=== PATIENT | female | born 1975 | race Caucasian/White ===

== ENCOUNTER 2020-05-01 08:44 | Outpatient (REF) | payer OTHER, SELFPAY | END 2020-05-01 08:45 | disposition home or self-care (01) | LOC: HO.HAP 08:44 | PROVIDERS: Visit Provider Internal Medicine | DX: Z46.1 Encounter for fitting and adjustment of hearing aid (principal) | CPT/HCPCS: 92700; V5241; V5257; V5264 ==

== ENCOUNTER 2020-05-10 15:36 | Outpatient (REF) | payer OTHER, SELFPAY | END 2020-05-10 15:37 | disposition home or self-care (01) | LOC: HO.HAP 15:36 | PROVIDERS: PCP Internal Medicine; Referring Provider Internal Medicine; Visit Provider Internal Medicine | DX: Z13.89 Encounter for screening for other disorder (principal) | CPT/HCPCS: 92700 ==

== ENCOUNTER 2020-05-17 10:08 | Outpatient (REF) | payer OTHER, SELFPAY | END 2020-05-17 10:09 | disposition home or self-care (01) | LOC: HO.MDS 10:08 | PROVIDERS: PCP Internal Medicine; Visit Provider Internal Medicine | DX: J45.909 Unspecified asthma, uncomplicated (principal) | CPT/HCPCS: 96372; J2357 ==

== ENCOUNTER → 2020-06-15 10:36 | Outpatient (BNVA) | payer OTHER, SELFPAY | PROVIDERS: PCP Internal Medicine; Visit Provider Internal Medicine | DX: J45.909 Unspecified asthma, uncomplicated (principal) | CPT/HCPCS: 99212 ==

== ENCOUNTER 2020-06-20 07:16 | Outpatient (REF) | payer OTHER, SELFPAY | END 2020-06-20 07:17 | disposition home or self-care (01) | LOC: HO.LAB 07:16 | PROVIDERS: PCP Internal Medicine; Visit Provider Internal Medicine | DX: Z20.828 Contact with and (suspected) exposure to other viral communicable diseases (principal) | CPT/HCPCS: C9803; U0003 ==

== ENCOUNTER 2020-07-14 13:40 | Outpatient (REF) | payer OTHER, SELFPAY | END 2020-07-14 13:41 | disposition home or self-care (01) | LOC: HO.MDS 13:40 | PROVIDERS: PCP Internal Medicine; Visit Provider Internal Medicine | DX: J45.50 Severe persistent asthma, uncomplicated (principal) | CPT/HCPCS: 96372; J2357 ==

== ENCOUNTER 2020-08-05 14:15 | Emergency (ER) | payer OTHER, SELFPAY ==
[2020-08-05 14:28] VITALS: BP 131/84; PULSE 81; RESP 18; TEMP 36.6; O2SAT 96; BMI 21.4
--- NOTE | 2020-08-05 15:02 | XR_ITS ---
EXAMINATION: XR CHEST CLINICAL INFORMATION: SOB COMPARISON: Chest x-ray 01/17/2020 TECHNIQUE: Frontal view of the chest was obtained. FINDINGS: The lungs are well-expanded and clear without acute pneumonic process. Prominent interstitial markings are seen in both lower lobes. The heart size and pulmonary vascularity is normal. No gross bony abnormality seen XR/XR chest 1V IMPRESSION: No acute cardiopulmonary process seen. No major change from 01/17/2020
--- NOTE | 2020-08-05 15:08 | ED.SOB ---
HPI - SOB/Dyspnea General Chief Complaint: Dyspnea Stated Complaint: diff breathing Time Seen by Provider: 08/05/20 14:43 Source: patient Mode of arrival: ambulatory Limitations: no limitations History of Present Illness HPI Narrative: Patient came from Urgent Care with history of COPD been having shortness of breath for last few days was saturating 90% at room air was given 60 mg of prednisone COVID test was done which was negative on arrival here patient was saturating 93% at room air and on 1.5 L 96% patient does have a nebulizer at home and uses inhaler also patient had similar episode in the past. Patient denied any fever or chills coughing a lot with mucopurulent phlegm no chest pain no leg swelling MD elicited complaint: shortness of breath and cough Pertinent past history: COPD Onset (ago): day(s) Timing: constant Severity: moderate Exacerbating factors: nothing Relieving factors: oxygen Known history of: COPD Associated symptoms: cough, wheezing and sputum production Related Data Home Medications Medication Instructions Recorded Confirmed buprenorphine 8 mg-naloxone 2 mg film SUBLINGUAL 04/10/20 sublingual film fluoxetine 20 mg capsule 20 mg PO DAILY 04/10/20 fluticasone propionate 50 INTRANASAL 04/10/20 mcg/actuation nasal spray,suspension loratadine 10 mg tablet 10 mg PO BEDTIME 04/10/20 montelukast 10 mg tablet 10 mg PO DAILY 04/10/20 omalizumab 150 mg/mL subcutaneous mg SUBCUT Q4W 04/10/20 syringe omeprazole 40 mg capsule,delayed 40 mg PO DAILY 04/10/20 release sennosides 8.6 mg tablet 17.2 mg PO DAILY 04/10/20 docusate sodium 100 mg capsule 100 mg PO DAILY 06/15/20 Previous Rx's Medication Instructions Recorded albuterol sulfate 90 mcg/actuation 2 puff INHALATION Q4-6H PRN #18 g 07/21/20 aerosol inhaler ipratropium 0.5 mg-albuterol 3 mg 3 ml INHALATION Q6H PRN #180 ml 07/21/20 (2.5 mg base)/3 mL nebulization soln doxycycline hyclate 100 mg PO BID #20 cap 08/05/20 prednisone 40 mg PO DAILY #10 tab 08/05/20 Allergies Allergy/AdvReac Type Severity Reaction Status Date / Time Penicillins [PENICILLINS] Allergy Intermediate HIVES Verified 06/15/20 10:44 acetaminophen [From VICODIN] AdvReac Intermediate NAUSEA & Verified 06/15/20 10:44 VOMITING Review of Systems Review of Systems: Constitutional : No Weight loss, No Fever, No Chills ENT/Mouth : No sore throat, No Rhinorrhea Eyes: No Eye Pain, No Swelling Cardiovascular : No Chest Pain, no palpitations Respiratory : ++Cough, ++ Sputum, ++shortness of breath Gastrointestinal : no Nausea, No Vomiting, No Diarrhea, No abdominal Pain, no black stools Genitourinary : No Dysuria, No Urinary Frequency Musculoskeletal : No joint pain, No Myalgias, No Joint Swelling Skin : No Skin Lesions, No rash Neuro : No Weakness, No Numbness, No Dizziness, No Headache Psych : No Anxiety/Panic, No Depression Heme/Lymph: No Bruising, No Lymphadenopathy Endocrine : No Polyuria, No Polydipsia All other systems reviewed and are negative [facility] Past Medical History Medical History (Updated 08/05/20 @ 16:22 by Low Silva MD) Allergic rhinitis Asthma COPD (chronic obstructive pulmonary disease) Social History Social History Alcohol intake: never Smoking Status: Never smoker Use of substances other than those prescribed or required for medical reasons: Yes Substance Use Type: Marijuana Substance Use Frequency: Daily Advance Directives: No Advance Directives Information Provided: No Physical Exam Vital Signs: Vital Signs: Last Vital Signs Temp 97.9 F 08/05/20 14:28 Pulse 78 08/05/20 15:49 Resp 18 08/05/20 14:28 BP 131/84 08/05/20 14:28 Pulse Ox 96 08/05/20 14:28 Body Mass Index 21.4 Appearance: Alert. Oriented X3. In moderate distress. Saturating 96% on 1.5 L coughing frequently Eyes: Pupils equal, round and reactive to light. ENT: Pharynx normal. Neck: Normal inspection. Neck supple. CVS: Normal heart rate and rhythm. Pulses normal. Respiratory: Moderate respiratory distress. Wheezing and rhonchi bilaterally diffuse , no rales Abdomen: Soft and nontender. Bowel sounds are present, no mass palpable, no CVA tenderness Skin: Skin warm and dry. Normal skin color. Normal skin turgor. Extremities: No lower extremity edema. No calf tenderness Neuro: Oriented X 3. No motor deficit. No sensory deficit. Course Course Course Narrative: Patient received continues nebulizing treatment feeling much better now chest x-ray negative for any acute infiltrate labs are stable will discharge patient home on prednisone and doxycycline advised to continue nebulizing treatment at home MDM - SOB/Dyspnea Differential Diagnosis Differential diagnosis: Likely acute exacerbation of chronic obstructive airways disease Medical Records Attestation: I reviewed the patient's medical records. Lab Data Attestation: I reviewed the patient's lab results. Result diagrams: 08/05/20 15:27 08/05/20 15:27 Labs: Lab Results 08/05/20 08/05/20 08/05/20 Range/Units 15:27 15:27 15:27 WBC 12.0 H (4.8-10.8) X10*3/uL RBC 4.52 (4.20-5.50) X10*6/uL Hgb 13.4 (12.0-16.0) g/dl Hct 40.2 (37-47) % MCV 88.9 (80-98) fL MCH 29.6 (27.0-33.0) pg MCHC 33.3 (31.0-35.0) g/dl RDW 12.2 (11.0-16.0) % Plt Count 209 (160-400) X10*3/uL MPV 10.2 (9.4-12.3) fL Immature Gran % (Auto) 0.3 (0.0-0.4) % Neut % (Auto) 78.4 H (45-73) % Lymph % (Auto) 14.6 L (20-40) % [place] % (Auto) 2.3 (2-11) % Eos % (Auto) 3.8 (0-4) % Baso % (Auto) 0.6 (0-2) % Lymph # (Auto) 1.7 (1.2-4.9) X10*3/uL [place] # (Auto) 0.3 (0.1-1.2) X10*3/uL Eos # (Auto) 0.5 H (0.0-0.4) X10*3/uL Baso # (Auto) 0.1 (0.0-0.2) X10*3/uL Abs Immat Gran (auto) 0.04 H (0.00-0.03) X10*3/uL Absolute Neuts (auto) 9.4 H (2.0-8.3) X10*3/uL Absolute Nucleated RBC 0.000 (0.0-0.012) X10*3/uL Nucleated RBC % (auto) 0.0 (0.0-0.2) /100WBC Sodium 136 (135-145) mmol/L Potassium 4.0 (3.3-5.1) mmol/l Chloride 101 (96-108) mmol/L Carbon Dioxide 28 (22-29) mmol/L Anion Gap 11 L (12-20) BUN 6 L (9-16) mg/dL Creatinine 0.74 (0.5-1.4) mg/dL Estim Creat Clear Calc 84.6 Estimated GFR > 60 Random Glucose 150 H (60-115) mg/dL Lactic Acid 1.4 (0.5-2.0) mmol/L Calcium 8.7 (8.4-10.2) mg/dL Total Bilirubin 0.5 (0.0-1.0) mg/dL Direct Bilirubin 0.2 (0.0-0.5) mg/dL AST 24 (5-31) U/L ALT 25 (0-31) U/L Alkaline Phosphatase 69 (39-117) U/L Total Protein 8.1 H (6.5-8.0) g/dL Albumin 3.9 (3.5-5.0) g/dL Discharge Plan Discharge Clinical Impression: Acute exacerbation of chronic obstructive airways disease Patient Disposition: Home, Self-Care Instructions: COPD (Chronic Obstructive Pulmonary Disease) (ED) Additional Instructions: Continue nebulizer at home every 4-6 hours as advised. Take prednisone as prescribed. Take doxycycline as prescribed. Follow with business support administrator/PCP if not better Prescriptions: New doxycycline hyclate 100 mg capsule 100 mg PO BID Qty: 20 RF: 0 prednisone 20 mg tablet 40 mg PO DAILY Qty: 10 RF: 0 No Action albuterol sulfate 90 mcg/actuation HFA aerosol inhaler 2 puff inhalation Q4-6H PRN (Reason: shortness of breath or wheezing) Qty: 18 RF: 2 ipratropium-albuterol 0.5 mg-3 mg(2.5 mg base)/3 mL solution for nebulization 3 ml inhalation Q6H PRN (Reason: shortness of breath or wheezing) Qty: 180 RF: 2 buprenorphine-naloxone 8-2 mg film sublingual RF: 0 fluticasone propionate 50 mcg/actuation spray,suspension intranasal RF: 0 fluoxetine 20 mg capsule 20 mg PO DAILY RF: 0 omeprazole 40 mg capsule,delayed release(DR/EC) 40 mg PO DAILY RF: 0 sennosides 8.6 mg tablet 17.2 mg PO DAILY RF: 0 Xolair 150 mg/mL syringe subcut Q4W RF: 0 loratadine 10 mg tablet 10 mg PO BEDTIME RF: 0 montelukast 10 mg tablet 10 mg PO DAILY RF: 0 docusate sodium [Colace] 100 mg capsule 100 mg PO DAILY RF: 0
[2020-08-05 15:33] LABS: MANUAL DIFF FLAG NO
[2020-08-05 15:34] LABS: Basophils Absolute Auto 0.1 X10*3/uL (0.0-0.2); Basophils Percent Auto 0.6 % (0-2); Eosinophils Absolute Auto 0.5 X10*3/uL (0.0-0.4); Eosinophils Percent Auto 3.8 % (0-4); Hematocrit 40.2 % (37-47); Hemoglobin 13.4 g/dl (12.0-16.0); Imm Gran Abs Auto 0.04 X10*3/uL (0.00-0.03); Imm Gran Pct Auto 0.3 % (0.0-0.4); Lymphocytes Absolute Auto 1.7 X10*3/uL (1.2-4.9); Lymphocytes Percent Auto 14.6 % (20-40); Mean Corpuscular HGB Conc 33.3 g/dl (31.0-35.0); Mean Corpuscular Hemoglobin 29.6 pg (27.0-33.0); Mean Corpuscular Volume 88.9 fL (80-98); Mean Platelet Volume 10.2 fL (9.4-12.3); Monocytes Absolute Auto 0.3 X10*3/uL (0.1-1.2); Monocytes Percent Auto 2.3 % (2-11); Neutrophils Absolute Auto 9.4 X10*3/uL (2.0-8.3); Neutrophils Percent Auto 78.4 % (45-73); Platelet Count 209 X10*3/uL (160-400); Red Blood Count 4.52 X10*6/uL (4.20-5.50); Red Cell Distribution Width 12.2 % (11.0-16.0)
[2020-08-05] MEDS: 0.9 % Sodium Chloride 1,000 ML 999 ML IVCONT (15:34)
[2020-08-05] MEDS: Albuterol Sulfate (0.083%) 2.5 MG/3 ML VIAL.NEB 5 MG INHALE ×2 (15:44→16:50)
[2020-08-05] MEDS: Albuterol/Iprat 2.5/0.5MG 3 ML AMPUL.NEB INHALE (15:44)
--- NOTE | 2020-08-05 15:45 | PC.NURSE ---
iv established, blood labs and cultures obtained and sent. medicated per emar. resp tx at bedside for treatment following negative covid swab.
[2020-08-05 15:49] VITALS: PULSE 78; O2SAT 98
[2020-08-05 15:54] LABS: Lactic Acid 1.4 mmol/L (0.5-2.0)
[2020-08-05 16:00] VITALS: O2SAT 93
[2020-08-05 16:01] LABS: Alanine Aminotransferase 25 U/L (0-31); Albumin Level 3.9 g/dL (3.5-5.0); Alkaline Phosphatase 69 U/L (39-117); Anion Gap 11 (12-20); Aspartate Amino Transferase 24 U/L (5-31); Bilirubin Direct 0.2 mg/dL (0.0-0.5); Bilirubin Total 0.5 mg/dL (0.0-1.0); Blood Urea Nitrogen 6 mg/dL (9-16); Calcium 8.7 mg/dL (8.4-10.2); Carbon Dioxide 28 mmol/L (22-29); Chloride 101 mmol/L (96-108); Creatinine Clr Calc Pharmacy 84.6; Estimated Glomerular Filt Rate > 60; Glucose Random 150 mg/dL (60-115); Sodium 136 mmol/L (135-145); Total Protein 8.1 g/dL (6.5-8.0)
[2020-08-05] MEDS: Magnesium Sulfate/H2O 2 GM/50 ML PIGGYBACK IV (16:51)
[2020-08-05] MEDS: dexAMETHasone sod phosphate 4 MG/ML VIAL IVPUSH (16:51)
[2020-08-05 16:54] VITALS: PULSE 87; O2SAT 99
== END 2020-08-05 18:01 | disposition home or self-care (01) ==
PROVIDERS: Internal Medicine; Emergency Provider Emergency Medicine Emergency Medical Services; PCP Internal Medicine
DX: J44.1 Chronic obstructive pulmonary disease with (acute) exacerbation (principal); R06.00 Dyspnea, unspecified; Z20.822 Contact with and (suspected) exposure to COVID-19
CPT/HCPCS: 36415; 71045; 80048; 80076; 83605; 85025; 87040; 94640; 94644; 96361; 96365; 96375; 99284; J1100; J3475

== ENCOUNTER → 2020-08-14 13:39 | Outpatient (BNVA) | payer OTHER, SELFPAY | PROVIDERS: PCP Internal Medicine; Visit Provider Internal Medicine | DX: J45.909 Unspecified asthma, uncomplicated (principal); J44.9 Chronic obstructive pulmonary disease, unspecified | CPT/HCPCS: 99212 ==

== ENCOUNTER → 2020-09-11 15:37 | Outpatient (BNVA) | payer OTHER, SELFPAY | PROVIDERS: PCP Internal Medicine; Visit Provider Internal Medicine ==

== ENCOUNTER 2020-09-13 11:02 | Outpatient (REF) | payer OTHER, SELFPAY | END 2020-09-13 11:03 | disposition home or self-care (01) | LOC: HO.MDS 11:02 | PROVIDERS: PCP Internal Medicine; Visit Provider Internal Medicine | DX: J45.50 Severe persistent asthma, uncomplicated (principal) | CPT/HCPCS: 96372; J2357 ==

== ENCOUNTER → 2020-09-26 15:50 | Outpatient (BNVA) | payer OTHER, SELFPAY | PROVIDERS: PCP Internal Medicine; Visit Provider Internal Medicine ==

== ENCOUNTER 2020-09-27 14:14 | Emergency (ER) | payer MEDICAID, SELFPAY ==
--- NOTE | ~2020-09-27 | XR_ITS ---
EXAMINATION: XR CHEST CLINICAL INFORMATION: SOB. COMPARISON: None TECHNIQUE: Frontal view of the chest was obtained. FINDINGS: No significant abnormality is noted involving the heart, lungs, mediastinum, bony thorax or soft tissues. XR/XR chest 1V IMPRESSION: Unremarkable chest examination.
[2020-09-27 14:21] VITALS: BP 126/90; PULSE 84; RESP 22; TEMP 36.7; O2SAT 93; BMI 21.2
[2020-09-27 14:30] VITALS: PULSE 74
--- NOTE | 2020-09-27 14:37 | ED.SOB ---
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 using nebulizer treatment every 4 hours at home without significant relief comes here for increased shortness of breath and wheezing saturating 93% at room air patient has not been vaccinated with COVID Related Data Home Medications Medication Instructions Recorded Confirmed buprenorphine 8 mg-naloxone 2 mg film SUBLINGUAL 04/10/20 09/26/20 sublingual film fluoxetine 20 mg capsule 20 mg PO DAILY 04/10/20 09/26/20 fluticasone propionate 50 INTRANASAL 04/10/20 09/26/20 mcg/actuation nasal spray,suspension loratadine 10 mg tablet 10 mg PO BEDTIME 04/10/20 09/26/20 montelukast 10 mg tablet 10 mg PO DAILY 04/10/20 09/26/20 omalizumab 150 mg/mL subcutaneous mg SUBCUT Q4W 04/10/20 09/26/20 syringe omeprazole 40 mg capsule,delayed 40 mg PO DAILY 04/10/20 09/26/20 release sennosides 8.6 mg tablet 17.2 mg PO DAILY 04/10/20 09/26/20 docusate sodium 100 mg capsule 100 mg PO DAILY 06/15/20 09/26/20 Previous Rx's Medication Instructions Recorded albuterol sulfate 90 mcg/actuation 2 puff INHALATION Q4-6H PRN #18 g 08/31/20 aerosol inhaler ipratropium 0.5 mg-albuterol 3 mg 3 ml INHALATION Q6H PRN #180 ml 09/25/20 (2.5 mg base)/3 mL nebulization soln doxycycline hyclate 100 mg tablet 100 mg PO BID 10 Days #20 tab 09/26/20 prednisone 5 mg tablet 5 mg PO BID 10 Days #21 tab 09/26/20 benzonatate [Tessalon Perles] 100 mg PO Q6H PRN #20 cap 09/27/20 cefpodoxime 200 mg PO BID #20 tab 09/27/20 doxycycline hyclate 100 mg PO BID #14 tab 09/27/20 Allergies Allergy/AdvReac Type Severity Reaction Status Date / Time Penicillins [PENICILLINS] Allergy Intermediate HIVES Verified 09/26/20 15:52 acetaminophen [From VICODIN] AdvReac Intermediate NAUSEA & Verified 09/26/20 15:52 VOMITING Review of Systems Review of Systems: Constitutional : No Weight loss, No Fever, No Chills ENT/Mouth : No sore throat, No Rhinorrhea Eyes: No Eye Pain, No Swelling Cardiovascular : No Chest Pain, no palpitations Respiratory : ++ Cough, ++Sputum, ++ shortness of breath Gastrointestinal : no Nausea, No Vomiting, No Diarrhea, No abdominal Pain, no black stools Genitourinary : No Dysuria, No Urinary Frequency Musculoskeletal : No joint pain, No Myalgias, No Joint Swelling Skin : No Skin Lesions, No rash Neuro : No Weakness, No Numbness, No Dizziness, No Headache Psych : No Anxiety/Panic, No Depression Heme/Lymph: No Bruising, No Lymphadenopathy Endocrine : No Polyuria, No Polydipsia All other systems reviewed and are negative [facility] Past Medical History Medical History Allergic rhinitis Asthma COPD (chronic obstructive pulmonary disease) COPD (chronic obstructive pulmonary disease) Exacerbation of asthma Social History Social History Alcohol intake: never Smoking Status: Former smoker Use of substances other than those prescribed or required for medical reasons: No Substance Use Type: Marijuana Advance Directives: Yes Advance Directives Information Provided: Yes Advance Directives on File: No Physical Exam Vital Signs: Vital Signs: Last Vital Signs Temp 98.0 F 09/27/20 14:21 Pulse 67 09/27/20 16:08 Resp 12 09/27/20 16:08 BP 136/85 09/27/20 16:08 Pulse Ox 100 09/27/20 16:08 Body Mass Index 21.2 MDM - SOB/Dyspnea MDM Narrative Medical decision making narrative: Patient with COPD with increased cough and expectoration chest x-rays negative for any pneumonia saturating 93 - 94% at room air patient COVID-19 is negative patient already on prednisone will increase the dose to 40 mg daily already taking doxycycline will add Cifpodoxime. Patient has slightly elevated lactic acid of 2.6 which is from nebulizing treatment which she been doing it at home and prior to arrival patient is not clinically septic Differential Diagnosis Differential diagnosis: Likely acute exacerbation of chronic obstructive airways disease and pneumonia Lab Data Result diagrams: 09/27/20 14:47 09/27/20 14:47 Labs: Lab Results 09/27/20 09/27/20 09/27/20 Range/Units 14:47 14:47 14:47 WBC 10.7 (4.8-10.8) X10*3/uL RBC 4.36 (4.20-5.50) X10*6/uL Hgb 12.9 (12.0-16.0) g/dl Hct 39.6 (37-47) % MCV 90.8 (80-98) fL MCH 29.6 (27.0-33.0) pg MCHC 32.6 (31.0-35.0) g/dl RDW 12.7 (11.0-16.0) % Plt Count 195 (160-400) X10*3/uL MPV 10.4 (9.4-12.3) fL Immature Gran % (Auto) 0.2 (0.0-0.4) % Neut % (Auto) 63.7 (45-73) % Lymph % (Auto) 27.5 (20-40) % [place] % (Auto) 7.2 (2-11) % Eos % (Auto) 1.1 (0-4) % Baso % (Auto) 0.3 (0-2) % Lymph # (Auto) 3.0 (1.2-4.9) X10*3/uL [place] # (Auto) 0.8 (0.1-1.2) X10*3/uL Eos # (Auto) 0.1 (0.0-0.4) X10*3/uL Baso # (Auto) 0.0 (0.0-0.2) X10*3/uL Abs Immat Gran (auto) 0.02 (0.00-0.03) X10*3/uL Absolute Neuts (auto) 6.8 (2.0-8.3) X10*3/uL Absolute Nucleated RBC 0.000 (0.0-0.012) X10*3/uL Nucleated RBC % (auto) 0.0 (0.0-0.2) /100WBC Sodium 139 (135-145) mmol/L Potassium 3.8 (3.3-5.1) mmol/L Chloride 98 (96-108) mmol/L Carbon Dioxide 35 H (22-29) mmol/L Anion Gap 10 L (12-20) BUN 8 L (9-16) mg/dL Creatinine 0.81 (0.5-1.4) mg/dL Estim Creat Clear Calc 77.3 Estimated GFR > 60 Random Glucose 75 D (60-115) mg/dL Lactic Acid 2.6 H* (0.5-2.0) mmol/L Calcium 9.1 (8.4-10.2) mg/dL Total Bilirubin 0.6 (0.0-1.0) mg/dL Direct Bilirubin 0.2 (0.0-0.5) mg/dL AST 21 (5-31) U/L ALT 19 (0-31) U/L Alkaline Phosphatase 68 (39-117) U/L Total Protein 8.4 H (6.5-8.0) g/dL Albumin 4.1 (3.5-5.0) g/dL COVID-19 ([facility]) (Negative) COVID-19 Clin Com 09/27/20 Range/Units 14:47 WBC (4.8-10.8) X10*3/uL RBC (4.20-5.50) X10*6/uL Hgb (12.0-16.0) g/dl Hct (37-47) % MCV (80-98) fL MCH (27.0-33.0) pg MCHC (31.0-35.0) g/dl RDW (11.0-16.0) % Plt Count (160-400) X10*3/uL MPV (9.4-12.3) fL Immature Gran % (Auto) (0.0-0.4) % Neut % (Auto) (45-73) % Lymph % (Auto) (20-40) % [place] % (Auto) (2-11) % Eos % (Auto) (0-4) % Baso % (Auto) (0-2) % Lymph # (Auto) (1.2-4.9) X10*3/uL [place] # (Auto) (0.1-1.2) X10*3/uL Eos # (Auto) (0.0-0.4) X10*3/uL Baso # (Auto) (0.0-0.2) X10*3/uL Abs Immat Gran (auto) (0.00-0.03) X10*3/uL Absolute Neuts (auto) (2.0-8.3) X10*3/uL Absolute Nucleated RBC (0.0-0.012) X10*3/uL Nucleated RBC % (auto) (0.0-0.2) /100WBC Sodium (135-145) mmol/L Potassium (3.3-5.1) mmol/L Chloride (96-108) mmol/L Carbon Dioxide (22-29) mmol/L Anion Gap (12-20) BUN (9-16) mg/dL Creatinine (0.5-1.4) mg/dL Estim Creat Clear Calc Estimated GFR Random Glucose (60-115) mg/dL Lactic Acid (0.5-2.0) mmol/L Calcium (8.4-10.2) mg/dL Total Bilirubin (0.0-1.0) mg/dL Direct Bilirubin (0.0-0.5) mg/dL AST (5-31) U/L ALT (0-31) U/L Alkaline Phosphatase (39-117) U/L Total Protein (6.5-8.0) g/dL Albumin (3.5-5.0) g/dL COVID-19 ([facility]) Negative (Negative) COVID-19 Clin Com See Note Discharge Plan Discharge Clinical Impression: Bronchitis Patient Disposition: Home, Self-Care Instructions: Acute Bronchitis (ED) Additional Instructions: Take antibiotics as advised increase the dose of prednisone as prescribed continue doxycycline and follow with PCP/ library circulation department chief Prescriptions: New cefpodoxime 200 mg tablet 200 mg PO BID Qty: 20 RF: 0 doxycycline hyclate 100 mg tablet 100 mg PO BID Qty: 14 RF: 0 benzonatate [Tessalon Perles] 100 mg capsule 100 mg PO Q6H PRN (Reason: cough) Qty: 20 RF: 0 No Action albuterol sulfate 90 mcg/actuation HFA aerosol inhaler 2 puff inhalation Q4-6H PRN (Reason: shortness of breath or wheezing) Qty: 18 RF: 2 ipratropium-albuterol 0.5 mg-3 mg(2.5 mg base)/3 mL solution for nebulization 3 ml inhalation Q6H PRN (Reason: shortness of breath or wheezing) Qty: 180 RF: 2 buprenorphine-naloxone 8-2 mg film sublingual RF: 0 fluticasone propionate 50 mcg/actuation spray,suspension intranasal RF: 0 fluoxetine 20 mg capsule 20 mg PO DAILY RF: 0 omeprazole 40 mg capsule,delayed release(DR/EC) 40 mg PO DAILY RF: 0 sennosides 8.6 mg tablet 17.2 mg PO DAILY RF: 0 Xolair 150 mg/mL syringe subcut Q4W RF: 0 loratadine 10 mg tablet 10 mg PO BEDTIME RF: 0 montelukast 10 mg tablet 10 mg PO DAILY RF: 0 docusate sodium [Colace] 100 mg capsule 100 mg PO DAILY RF: 0 prednisone 5 mg tablet 5 mg PO BID 10 Days Qty: 21 RF: 0 doxycycline hyclate 100 mg tablet 100 mg PO BID 10 Days Qty: 20 RF: 0
[2020-09-27 14:45] VITALS: O2SAT 93
--- NOTE | 2020-09-27 14:45 | PC.NURSE ---
lungs - exp wheezing all lobes, very congested cough. prod cough (yellow/greenish) sputum
[2020-09-27] MEDS: methylPREDNISolone Sod Succ 125 MG/2 ML VIAL IVPUSH (15:01)
[2020-09-27] MEDS: 0.9 % Sodium Chloride 1,000 ML 999 ML IVCONT (15:01)
[2020-09-27 15:05] LABS: MANUAL DIFF FLAG NO
[2020-09-27 15:09] LABS: Basophils Percent Auto 0.3 % (0-2); Eosinophils Absolute Auto 0.1 X10*3/uL (0.0-0.4); Eosinophils Percent Auto 1.1 % (0-4); Hematocrit 39.6 % (37-47); Hemoglobin 12.9 g/dl (12.0-16.0); Imm Gran Abs Auto 0.02 X10*3/uL (0.00-0.03); Imm Gran Pct Auto 0.2 % (0.0-0.4); Lymphocytes Percent Auto 27.5 % (20-40); Mean Corpuscular HGB Conc 32.6 g/dl (31.0-35.0); Mean Corpuscular Hemoglobin 29.6 pg (27.0-33.0); Mean Corpuscular Volume 90.8 fL (80-98); Mean Platelet Volume 10.4 fL (9.4-12.3); Monocytes Absolute Auto 0.8 X10*3/uL (0.1-1.2); Monocytes Percent Auto 7.2 % (2-11); Neutrophils Absolute Auto 6.8 X10*3/uL (2.0-8.3); Neutrophils Percent Auto 63.7 % (45-73); Platelet Count 195 X10*3/uL (160-400); Red Blood Count 4.36 X10*6/uL (4.20-5.50); Red Cell Distribution Width 12.7 % (11.0-16.0); White Blood Count 10.7 X10*3/uL (4.8-10.8)
[2020-09-27 15:13] LABS: COVID-19 Test Negative (Negative)
[2020-09-27 15:23] LABS: Lactic Acid 2.6 mmol/L (0.5-2.0)
[2020-09-27 15:36] LABS: Alanine Aminotransferase 19 U/L (0-31); Albumin Level 4.1 g/dL (3.5-5.0); Alkaline Phosphatase 68 U/L (39-117); Anion Gap 10 (12-20); Aspartate Amino Transferase 21 U/L (5-31); Bilirubin Direct 0.2 mg/dL (0.0-0.5); Bilirubin Total 0.6 mg/dL (0.0-1.0); Blood Urea Nitrogen 8 mg/dL (9-16); Calcium 9.1 mg/dL (8.4-10.2); Carbon Dioxide 35 mmol/L (22-29); Chloride 98 mmol/L (96-108); Creatinine Clr Calc Pharmacy 77.3; Estimated Glomerular Filt Rate > 60; Glucose Random 75 mg/dL (60-115); Potassium 3.8 mmol/L (3.3-5.1); Sodium 139 mmol/L (135-145); Total Protein 8.4 g/dL (6.5-8.0)
[2020-09-27 16:08] VITALS: BP 136/85; PULSE 67; RESP 12; O2SAT 100
[2020-09-27] MEDS: cefTRIAXone sodium 1 GM in 0.9 % Sodium Chloride 50 ML IV (16:24)
[2020-09-27] MEDS: Albuterol/Iprat 2.5/0.5MG 3 ML AMPUL.NEB INHALE (16:39)
[2020-09-27] MEDS: Albuterol Sulfate (0.083%) 2.5 MG/3 ML VIAL.NEB 5 MG INHALE (16:40)
[2020-09-27] MEDS: Albuterol Sulfate (0.083%) 2.5 MG/3 ML VIAL.NEB INHALE (16:40)
[2020-09-27 16:44] VITALS: PULSE 66; O2SAT 92
[2020-09-27 16:55] LABS: Reflex Lactate? Lactic Acid Added
[2020-09-27 17:29] VITALS: BP 111/73; PULSE 81; RESP 18; TEMP 36.4; O2SAT 92
== END 2020-09-27 17:48 | disposition home or self-care (01) ==
PROVIDERS: Emergency Provider Internal Medicine; PCP Internal Medicine
DX: J20.9 Acute bronchitis, unspecified (principal); Z20.822 Contact with and (suspected) exposure to COVID-19; J44.9 Chronic obstructive pulmonary disease, unspecified; Z87.891 Personal history of nicotine dependence
CPT/HCPCS: 36415; 71045; 80048; 80076; 83605; 85025; 87040; 87635; 94640; 94644; 96361; 96365; 96374; 99285; J0696; J2930

== ENCOUNTER 2020-10-05 17:16 | Emergency (ER) | payer OTHER, SELFPAY ==
--- NOTE | ~2020-10-05 | XR_ITS ---
EXAMINATION: XR CHEST CLINICAL INFORMATION: Shortness of breath COMPARISON: Chest x-ray 09/27/2020 TECHNIQUE: Frontal portable view of the chest was obtained. 5:34 PM FINDINGS: No significant abnormality is noted involving the heart, lungs, mediastinum, bony thorax or soft tissues. XR/XR chest 1V IMPRESSION: Unremarkable examination.
--- NOTE | 2020-10-05 17:28 | ED.SOB ---
HPI - SOB/Dyspnea General Chief Complaint: Dyspnea Stated Complaint: sob Time Seen by Provider: 10/05/20 17:22 Source: patient Mode of arrival: EMS Limitations: no limitations History of Present Illness HPI Narrative: Patient history of asthma/COPD with frequent shortness of breath attacks was seen here on 09/27 chest x-ray was negative patient started on doxycycline and cefpodoxime and asked to continue prednisone 40 mg daily which she did not take. Comes here for increased shortness of breath for last 2 days got worse today prior to going to work she took a breathing treatment earlier. No fever no chills comes complaining of increased cough with mucopurulent phlegm EMT they gave her 125 mg of Solu-Medrol and DuoNeb treatment EN route Pertinent past history: COPD and asthma Onset (ago): day(s) (2) Related Data Home Medications Medication Instructions Recorded Confirmed buprenorphine 8 mg-naloxone 2 mg film SUBLINGUAL 04/10/20 09/26/20 sublingual film fluoxetine 20 mg capsule 20 mg PO DAILY 04/10/20 09/26/20 fluticasone propionate 50 INTRANASAL 04/10/20 09/26/20 mcg/actuation nasal spray,suspension loratadine 10 mg tablet 10 mg PO BEDTIME 04/10/20 09/26/20 montelukast 10 mg tablet 10 mg PO DAILY 04/10/20 09/26/20 omalizumab 150 mg/mL subcutaneous mg SUBCUT Q4W 04/10/20 09/26/20 syringe omeprazole 40 mg capsule,delayed 40 mg PO DAILY 04/10/20 09/26/20 release sennosides 8.6 mg tablet 17.2 mg PO DAILY 04/10/20 09/26/20 docusate sodium 100 mg capsule 100 mg PO DAILY 06/15/20 09/26/20 Previous Rx's Medication Instructions Recorded albuterol sulfate 90 mcg/actuation 2 puff INHALATION Q4-6H PRN #18 g 08/31/20 aerosol inhaler ipratropium 0.5 mg-albuterol 3 mg 3 ml INHALATION Q6H PRN #180 ml 09/25/20 (2.5 mg base)/3 mL nebulization soln doxycycline hyclate 100 mg tablet 100 mg PO BID 10 Days #20 tab 09/26/20 prednisone 5 mg tablet 5 mg PO BID 10 Days #21 tab 09/26/20 benzonatate [Tessalon Perles] 100 mg PO Q6H PRN #20 cap 09/27/20 cefpodoxime 200 mg PO BID #20 tab 09/27/20 doxycycline hyclate 100 mg PO BID #14 tab 09/27/20 prednisone 40 mg PO DAILY #10 tab 10/05/20 Allergies Allergy/AdvReac Type Severity Reaction Status Date / Time Penicillins [PENICILLINS] Allergy Intermediate HIVES Verified 09/26/20 15:52 acetaminophen [From VICODIN] AdvReac Intermediate NAUSEA & Verified 09/26/20 15:52 VOMITING Review of Systems Review of Systems: Constitutional : No Weight loss, No Fever, No Chills ENT/Mouth : No sore throat, No Rhinorrhea Eyes: No Eye Pain, No Swelling Cardiovascular : No Chest Pain, no palpitations Respiratory : ++Cough, +Sputum, +shortness of breath Gastrointestinal : no Nausea, No Vomiting, No Diarrhea, No abdominal Pain, no black stools Genitourinary : No Dysuria, No Urinary Frequency Musculoskeletal : No joint pain, No Myalgias, No Joint Swelling Skin : No Skin Lesions, No rash Neuro : No Weakness, No Numbness, No Dizziness, No Headache Psych : No Anxiety/Panic, No Depression Heme/Lymph: No Bruising, No Lymphadenopathy Endocrine : No Polyuria, No Polydipsia All other systems reviewed and are negative [facility] Past Medical History Medical History Allergic rhinitis Asthma COPD (chronic obstructive pulmonary disease) COPD (chronic obstructive pulmonary disease) Exacerbation of asthma Social History Social History Alcohol intake: never Smoking Status: Former smoker Substance Use Type: Marijuana Advance Directives: No Advance Directives Information Provided: No Physical Exam Vital Signs: Vital Signs: Last Vital Signs Temp 98.0 F 10/05/20 17:33 Pulse 72 10/05/20 18:25 Resp 16 10/05/20 17:33 BP 90/62 10/05/20 17:33 Pulse Ox 90 L 10/05/20 17:33 Body Mass Index 21.4 Appearance: Alert. Oriented X3. mild distress. Eyes: Pupils equal, round and reactive to light. ENT: Pharynx normal. Neck: Normal inspection. Neck supple. CVS: Normal heart rate and rhythm. Pulses normal. Respiratory: mild respiratory distress. Wheezing bilaterally no rales or crackles Abdomen: Soft and nontender. Bowel sounds are present, no mass palpable, no CVA tenderness Skin: Skin warm and dry. Normal skin color. Normal skin turgor. Extremities: No lower extremity edema. Neuro: Oriented X 3. No motor deficit. No sensory deficit. MDM - SOB/Dyspnea MDM Narrative Medical decision making narrative: Patient feeling much better now chest x-ray negative patient already on antibiotic will give prescription for prednisone for 5 days advised to follow with PCP she is supposed to get allergy shots which she stopped taking it and since then she has been having more episodes of shortness of breath patient is saturating 94% at room air Differential Diagnosis Differential diagnosis: Likely acute exacerbation of chronic obstructive airways disease, pneumonia and asthma with exacerbation Lab Data Attestation: I reviewed the patient's lab results. Result diagrams: 10/05/20 18:14 10/05/20 18:14 Labs: Lab Results 10/05/20 10/05/20 Range/Units 18:14 18:14 WBC 12.3 H (4.8-10.8) X10*3/uL RBC 4.26 (4.20-5.50) X10*6/uL Hgb 12.6 (12.0-16.0) g/dl Hct 38.3 (37-47) % MCV 89.9 (80-98) fL MCH 29.6 (27.0-33.0) pg MCHC 32.9 (31.0-35.0) g/dl RDW 13.0 (11.0-16.0) % Plt Count 218 (160-400) X10*3/uL MPV 9.8 (9.4-12.3) fL Immature Gran % (Auto) 0.3 (0.0-0.4) % Neut % (Auto) 69.1 (45-73) % Lymph % (Auto) 22.8 (20-40) % [place] % (Auto) 3.7 (2-11) % Eos % (Auto) 3.8 (0-4) % Baso % (Auto) 0.3 (0-2) % Lymph # (Auto) 2.8 (1.2-4.9) X10*3/uL [place] # (Auto) 0.5 (0.1-1.2) X10*3/uL Eos # (Auto) 0.5 H (0.0-0.4) X10*3/uL Baso # (Auto) 0.0 (0.0-0.2) X10*3/uL Abs Immat Gran (auto) 0.04 H (0.00-0.03) X10*3/uL Absolute Neuts (auto) 8.5 H (2.0-8.3) X10*3/uL Absolute Nucleated RBC 0.000 (0.0-0.012) X10*3/uL Nucleated RBC % (auto) 0.0 (0.0-0.2) /100WBC Sodium 140 (135-145) mmol/L Potassium 3.6 (3.3-5.1) mmol/L Chloride 100 (96-108) mmol/L Carbon Dioxide 30 H (22-29) mmol/L Anion Gap 14 (12-20) BUN 15 D (9-16) mg/dL Creatinine 0.80 (0.5-1.4) mg/dL Estim Creat Clear Calc 78.3 Estimated GFR > 60 Random Glucose 89 (60-115) mg/dL Calcium 8.4 D (8.4-10.2) mg/dL Discharge Plan Discharge Clinical Impression: Exacerbation of asthma Qualifiers: Asthma severity: moderate Asthma persistence: persistent Qualified Code(s): J45.41 - Moderate persistent asthma with (acute) exacerbation Patient Disposition: Home, Self-Care Instructions: Asthma (ED) Additional Instructions: Continue antibiotics start taking prednisone 40 mg daily for the next 5 days And follow-up with PCP if not better Prescriptions: New prednisone 20 mg tablet 40 mg PO DAILY Qty: 10 RF: 0 No Action albuterol sulfate 90 mcg/actuation HFA aerosol inhaler 2 puff inhalation Q4-6H PRN (Reason: shortness of breath or wheezing) Qty: 18 RF: 2 ipratropium-albuterol 0.5 mg-3 mg(2.5 mg base)/3 mL solution for nebulization 3 ml inhalation Q6H PRN (Reason: shortness of breath or wheezing) Qty: 180 RF: 2 cefpodoxime 200 mg tablet 200 mg PO BID Qty: 20 RF: 0 doxycycline hyclate 100 mg tablet 100 mg PO BID Qty: 14 RF: 0 benzonatate [Tessalon Perles] 100 mg capsule 100 mg PO Q6H PRN (Reason: cough) Qty: 20 RF: 0 buprenorphine-naloxone 8-2 mg film sublingual RF: 0 fluticasone propionate 50 mcg/actuation spray,suspension intranasal RF: 0 fluoxetine 20 mg capsule 20 mg PO DAILY RF: 0 omeprazole 40 mg capsule,delayed release(DR/EC) 40 mg PO DAILY RF: 0 sennosides 8.6 mg tablet 17.2 mg PO DAILY RF: 0 Xolair 150 mg/mL syringe subcut Q4W RF: 0 loratadine 10 mg tablet 10 mg PO BEDTIME RF: 0 montelukast 10 mg tablet 10 mg PO DAILY RF: 0 docusate sodium [Colace] 100 mg capsule 100 mg PO DAILY RF: 0 prednisone 5 mg tablet 5 mg PO BID 10 Days Qty: 21 RF: 0 doxycycline hyclate 100 mg tablet 100 mg PO BID 10 Days Qty: 20 RF: 0
[2020-10-05 17:33] VITALS: BP 90/62; BP 90/64; PULSE 79; PULSE 85; RESP 16; TEMP 36.7; O2SAT 74; O2SAT 90; BMI 21.4
[2020-10-05] MEDS: 0.9 % Sodium Chloride 1,000 ML 999 ML IVCONT (18:14)
[2020-10-05 18:17] LABS: MANUAL DIFF FLAG NO
[2020-10-05 18:21] LABS: Basophils Percent Auto 0.3 % (0-2); Eosinophils Absolute Auto 0.5 X10*3/uL (0.0-0.4); Eosinophils Percent Auto 3.8 % (0-4); Hematocrit 38.3 % (37-47); Hemoglobin 12.6 g/dl (12.0-16.0); Imm Gran Abs Auto 0.04 X10*3/uL (0.00-0.03); Imm Gran Pct Auto 0.3 % (0.0-0.4); Lymphocytes Absolute Auto 2.8 X10*3/uL (1.2-4.9); Lymphocytes Percent Auto 22.8 % (20-40); Mean Corpuscular HGB Conc 32.9 g/dl (31.0-35.0); Mean Corpuscular Hemoglobin 29.6 pg (27.0-33.0); Mean Corpuscular Volume 89.9 fL (80-98); Mean Platelet Volume 9.8 fL (9.4-12.3); Monocytes Absolute Auto 0.5 X10*3/uL (0.1-1.2); Monocytes Percent Auto 3.7 % (2-11); Neutrophils Absolute Auto 8.5 X10*3/uL (2.0-8.3); Neutrophils Percent Auto 69.1 % (45-73); Platelet Count 218 X10*3/uL (160-400); Red Blood Count 4.26 X10*6/uL (4.20-5.50); White Blood Count 12.3 X10*3/uL (4.8-10.8)
[2020-10-05] MEDS: Albuterol Sulfate (0.083%) 2.5 MG/3 ML VIAL.NEB 5 MG INHALE ×2 (18:23→21:11)
[2020-10-05 18:25] VITALS: PULSE 72; O2SAT 97
[2020-10-05 18:40] LABS: Anion Gap 14 (12-20); Blood Urea Nitrogen 15 mg/dL (9-16); Calcium 8.4 mg/dL (8.4-10.2); Carbon Dioxide 30 mmol/L (22-29); Chloride 100 mmol/L (96-108); Creatinine Clr Calc Pharmacy 78.3; Estimated Glomerular Filt Rate > 60; Glucose Random 89 mg/dL (60-115); Potassium 3.6 mmol/L (3.3-5.1); Sodium 140 mmol/L (135-145)
[2020-10-05 20:00] VITALS: BP 80/56; PULSE 80
[2020-10-05 21:06] VITALS: BP 85/45; PULSE 88; RESP 16; O2SAT 97
[2020-10-05 21:11] VITALS: PULSE 74; O2SAT 98
[2020-10-05 21:35] VITALS: BP 96/59; PULSE 73; RESP 16; O2SAT 94
== END 2020-10-05 21:43 | disposition home or self-care (01) ==
PROVIDERS: Emergency Provider Internal Medicine; PCP Internal Medicine
DX: J45.41 Moderate persistent asthma with (acute) exacerbation (principal); J44.9 Chronic obstructive pulmonary disease, unspecified; F12.90 Cannabis use, unspecified, uncomplicated; Z91.14 Patient's other noncompliance with medication regimen
CPT/HCPCS: 36415; 71045; 80048; 85025; 94640; 96360; 99284

== ENCOUNTER 2020-10-11 11:01 | Outpatient (REF) | payer OTHER, SELFPAY | END 2020-10-11 11:02 | disposition home or self-care (01) | LOC: HO.MDS 11:01 | PROVIDERS: PCP Internal Medicine; Visit Provider Internal Medicine | DX: J45.50 Severe persistent asthma, uncomplicated (principal) | CPT/HCPCS: 96372; J2357 ==

== ENCOUNTER 2020-10-25 12:13 | Emergency (ER) | payer OTHER, SELFPAY ==
--- NOTE | ~2020-10-25 | XR_ITS ---
EXAMINATION: XR CHEST CLINICAL INFORMATION: SOB COMPARISON: Chest 10/05/2020 TECHNIQUE: 2 views of the chest were obtained. FINDINGS: The lungs are hyperinflated but clear of acute process. The heart size and pulmonary vascularity is normal. No gross bony abnormality. XR/XR chest 2V IMPRESSION: Hyperinflated lungs without acute process.
[2020-10-25 12:30] VITALS: BP 103/73; PULSE 95; RESP 24; TEMP 36.8; O2SAT 91; BMI 21.4
--- NOTE | 2020-10-25 12:30 | ED.SOB ---
HPI - SOB/Dyspnea General Chief Complaint: Dyspnea Stated Complaint: DIFF BREATHING COPD Time Seen by Provider: 10/25/20 12:30 Source: patient Mode of arrival: ambulatory Limitations: no limitations History of Present Illness HPI Narrative: Patient seen and evaluated upon arrival in triage Pleasant 44-year-old female with history of asthma/COPD with frequent attacks she was seen at the end of September and treat with course of prednisone and antibiotic she did well with this was overall doing better and past couple days started having coughing and wheezing again. No fever, chest pain. Denies any COVID symptoms. No recent travel or sick contacts. MD elicited complaint: shortness of breath Pertinent past history: COPD Related Data Home Medications Medication Instructions Recorded Confirmed buprenorphine 8 mg-naloxone 2 mg film SUBLINGUAL 04/10/20 09/26/20 sublingual film fluoxetine 20 mg capsule 20 mg PO DAILY 04/10/20 09/26/20 fluticasone propionate 50 INTRANASAL 04/10/20 09/26/20 mcg/actuation nasal spray,suspension loratadine 10 mg tablet 10 mg PO BEDTIME 04/10/20 09/26/20 montelukast 10 mg tablet 10 mg PO DAILY 04/10/20 09/26/20 omalizumab 150 mg/mL subcutaneous mg SUBCUT Q4W 04/10/20 09/26/20 syringe omeprazole 40 mg capsule,delayed 40 mg PO DAILY 04/10/20 09/26/20 release sennosides 8.6 mg tablet 17.2 mg PO DAILY 04/10/20 09/26/20 docusate sodium 100 mg capsule 100 mg PO DAILY 06/15/20 09/26/20 Previous Rx's Medication Instructions Recorded albuterol sulfate 90 mcg/actuation 2 puff INHALATION Q4-6H PRN #18 g 08/31/20 aerosol inhaler ipratropium 0.5 mg-albuterol 3 mg 3 ml INHALATION Q6H PRN #180 ml 09/25/20 (2.5 mg base)/3 mL nebulization soln doxycycline hyclate 100 mg tablet 100 mg PO BID 10 Days #20 tab 09/26/20 prednisone 5 mg tablet 5 mg PO BID 10 Days #21 tab 09/26/20 benzonatate [Tessalon Perles] 100 mg PO Q6H PRN #20 cap 09/27/20 cefpodoxime 200 mg PO BID #20 tab 09/27/20 doxycycline hyclate 100 mg PO BID #14 tab 09/27/20 prednisone 40 mg PO DAILY #10 tab 10/05/20 doxycycline monohydrate 100 mg PO BID 7 Days #14 cap 10/25/20 prednisone 40 mg PO DAILY 5 Days #10 tab 10/25/20 Allergies Allergy/AdvReac Type Severity Reaction Status Date / Time Penicillins [PENICILLINS] Allergy Intermediate HIVES Verified 09/26/20 15:52 acetaminophen [From VICODIN] AdvReac Intermediate NAUSEA & Verified 09/26/20 15:52 VOMITING Review of Systems Review of Systems: Constitutional: No Weight loss, No Fever, No Chills, No Night Sweats, No Fatigue, No Malaise ENT/Mouth: No Hearing loss, No Ear Pain, No Nasal Congestion, No Sinus Pain, No Hoarseness, No sore throat, No Rhinorrhea, No Swallowing Difficulty Eyes: No Eye Pain, No Swelling, No Redness, No Foreign Body, No Discharge, No Vision Changes Cardiovascular: No Chest Pain, No SOB, No Dyspnea on Exertion, No Orthopnea, No Edema, No Palpitations Respiratory: No Cough, No Sputum, + Wheezing, No Smoke Exposure, No Dyspnea Gastrointestinal: No Nausea, No Vomiting, No Diarrhea, No Constipation, No abdominal Pain, No Hematochezia, No Melena Genitourinary: no irregular bleeding, No Dysuria, No Urinary Frequency, No Hematuria, No Urinary Incontinence, No Urgency, No Flank Pain, No Urinary Flow Changes, No Hesitancy Musculoskeletal: No joint pain, No Myalgias, No Joint Swelling Skin: No Skin Lesions, No rash Neuro: No Weakness, No Numbness, No Paresthesias, No Loss of Consciousness, No Dizziness, No Headache Psych: No Anxiety/Panic, No Depression, No SI/HI/AH/VH, No Social Issues Heme/Lymph: No Bruising, No Bleeding,No Lymphadenopathy Endocrine: No Polyuria, No Polydipsia, No Temperature Intolerance Yes all other systems are reviewed and are negative [facility] Past Medical History Medical History Allergic rhinitis Asthma COPD (chronic obstructive pulmonary disease) COPD (chronic obstructive pulmonary disease) Exacerbation of asthma Social History Social History Alcohol intake: never Smoking Status: Former smoker Substance Use Type: Marijuana Advance Directives: Yes Advance Directives Information Provided: Yes Advance Directives on File: No Physical Exam Vital Signs: Vital Signs: Last Vital Signs Temp 98.2 F 10/25/20 18:00 Pulse 86 10/25/20 18:00 Resp 20 10/25/20 18:00 BP 102/57 L 10/25/20 18:00 Pulse Ox 95 10/25/20 18:00 Body Mass Index 21.4 Reviewed Const: General: cooperative and anxious; No acute distress or intoxicated appearing Nutritional Appearance: average body habitus Orientation/consciousness: patient oriented x3 HENMT: Head: Yes normal to inspection Ears: hearing grossly normal bilaterally Eyes: General: appearance normal, both eyes and all related structures Visual Bernardo: normal visual bernardo by confrontation Neck: Neck: Yes normal visual inspection, No positive Brudzinski's sign, No positive Kernig's sign and No tender Thyroid: Thyroid normal Chest: Chest palpation & inspection: normal inspection of the chest Resp: Auscultation: wheezes scattered wheezes and throughout Cardio: Jugular venous distension: no JVD Rhythm: regular rhythm Heart sounds: S1 normal heart sound present and S2 normal heart sound present GI: Inspection: Yes normal to inspection Palpation (GI): Soft to palpation Percussion: Yes normal to percussion Auscultation: normal bowel sounds : General: Yes no CVA tenderness Back/Spine/Pelvis: Back: no CVA tenderness Skin: General skin exam: no rashes or lesions noted Neuro: General: patient oriented x3 Extrem: General: Yes normal to inspection Course Reevaluation(s) Reevaluation #1: 1233 Patient seen and evaluated upon arrival in triage Having asthma/COPD flare Diffusely wheezing in all bernardo otherwise in no overt distress not her worst episode. Labs including nebulizer treatment and workup ordered. Patient triaged to the main emergency room. At this time patient is stable no signs or symptoms of infectious process. Reevaluation #2: Given our role neb marginal improvement repeat neb feels much better. Has maintained oxygen of 95% on room air. Feels much better lung sounds clear to auscultation. Workup overall unrevealing. She would like to go home ambulatory with steady straight gait no hypoxia or shortness of breath. States she usually gets a dose of steroid and antibiotic which helped her very well. She does see pulmonology here. We advised her for close follow-up. MDM - SOB/Dyspnea Differential Diagnosis Differential diagnosis: Likely acute exacerbation of chronic obstructive airways disease and asthma with exacerbation; Unlikely congestive heart failure, pneumonia, pulmonary embolism, pleural effusion, sleep apnea and anemia Medical Records Attestation: I reviewed the patient's medical records. Medical records narrative: ED/pulmonology reports reviewed Lab Data Attestation: I reviewed the patient's lab results. Result diagrams: 10/25/20 12:37 10/25/20 17:45 Labs: Lab Results 10/25/20 10/25/20 10/25/20 Range/Units 12:35 12:37 12:37 WBC 10.3 (4.8-10.8) X10*3/uL RBC 4.83 (4.20-5.50) X10*6/uL Hgb 14.2 (12.0-16.0) g/dl Hct 43.3 (37-47) % MCV 89.6 (80-98) fL MCH 29.4 (27.0-33.0) pg MCHC 32.8 (31.0-35.0) g/dl RDW 12.8 (11.0-16.0) % Plt Count TNP MPV Not Reportable Immature Gran % (Auto) 0.3 (0.0-0.4) % Neut % (Auto) 63.8 (45-73) % Lymph % (Auto) 25.1 (20-40) % [place] % (Auto) 5.8 (2-11) % Eos % (Auto) 4.3 H (0-4) % Baso % (Auto) 0.7 (0-2) % Lymph # (Auto) 2.6 (1.2-4.9) X10*3/uL [place] # (Auto) 0.6 (0.1-1.2) X10*3/uL Eos # (Auto) 0.4 (0.0-0.4) X10*3/uL Baso # (Auto) 0.1 (0.0-0.2) X10*3/uL Abs Immat Gran (auto) 0.03 (0.00-0.03) X10*3/uL Absolute Neuts (auto) 6.6 (2.0-8.3) X10*3/uL Absolute Nucleated RBC 0.000 (0.0-0.012) X10*3/uL Nucleated RBC % (auto) 0.0 (0.0-0.2) /100WBC Smear Tech's Comments VERIFIED PT 10.6 L (10.8-13.0) SEC INR 0.9 (0.9-1.1) APTT 47.0 H (24.1-38.0) SEC Sodium (135-145) mmol/L Potassium (3.3-5.1) mmol/L Chloride (96-108) mmol/L Carbon Dioxide (22-29) mmol/L Anion Gap (12-20) BUN (9-16) mg/dL Creatinine (0.5-1.4) mg/dL Estim Creat Clear Calc Estimated GFR Random Glucose (60-115) mg/dL Calcium (8.4-10.2) mg/dL Total Bilirubin (0.0-1.0) mg/dL AST (5-31) U/L ALT (0-31) U/L Alkaline Phosphatase (39-117) U/L Troponin I High Sens (<3.5-17.0) ng/L Total Protein (6.5-8.0) g/dL Albumin (3.5-5.0) g/dL Urine Color Urine Appearance Urine pH (5.0-8.0) Ur Specific [place] (1.005-1.025) Urine Protein (NEG-TRACE) MG/DL Urine Glucose (UA) (NEG) MG/DL Urine Ketones (NEG) MG/DL Urine Blood (NEG) Urine Nitrite (NEG) Ur Leukocyte Esterase (NEG) Urine Test (NEGATIVE) COVID-19 ([facility]) Negative (Negative) COVID-19 Clin Com See Note 10/25/20 10/25/20 10/25/20 Range/Units 13:24 17:45 17:45 WBC (4.8-10.8) X10*3/uL RBC (4.20-5.50) X10*6/uL Hgb (12.0-16.0) g/dl Hct (37-47) % MCV (80-98) fL MCH (27.0-33.0) pg MCHC (31.0-35.0) g/dl RDW (11.0-16.0) % Plt Count MPV Immature Gran % (Auto) (0.0-0.4) % Neut % (Auto) (45-73) % Lymph % (Auto) (20-40) % [place] % (Auto) (2-11) % Eos % (Auto) (0-4) % Baso % (Auto) (0-2) % Lymph # (Auto) (1.2-4.9) X10*3/uL [place] # (Auto) (0.1-1.2) X10*3/uL Eos # (Auto) (0.0-0.4) X10*3/uL Baso # (Auto) (0.0-0.2) X10*3/uL Abs Immat Gran (auto) (0.00-0.03) X10*3/uL Absolute Neuts (auto) (2.0-8.3) X10*3/uL Absolute Nucleated RBC (0.0-0.012) X10*3/uL Nucleated RBC % (auto) (0.0-0.2) /100WBC Smear Tech's Comments PT (10.8-13.0) SEC INR (0.9-1.1) APTT (24.1-38.0) SEC Sodium 136 (135-145) mmol/L Potassium 3.8 (3.3-5.1) mmol/L Chloride 102 (96-108) mmol/L Carbon Dioxide 27 (22-29) mmol/L Anion Gap 11 L (12-20) BUN 6 L D (9-16) mg/dL Creatinine 0.83 (0.5-1.4) mg/dL Estim Creat Clear Calc 75.4 Estimated GFR > 60 Random Glucose 102 (60-115) mg/dL Calcium 9.3 D (8.4-10.2) mg/dL Total Bilirubin 0.6 (0.0-1.0) mg/dL AST 24 (5-31) U/L ALT 23 (0-31) U/L Alkaline Phosphatase 69 (39-117) U/L Troponin I High Sens 7.5 5.1 (<3.5-17.0) ng/L Total Protein 8.1 H (6.5-8.0) g/dL Albumin 4.0 (3.5-5.0) g/dL Urine Color Urine Appearance Urine pH (5.0-8.0) Ur Specific [place] (1.005-1.025) Urine Protein (NEG-TRACE) MG/DL Urine Glucose (UA) (NEG) MG/DL Urine Ketones (NEG) MG/DL Urine Blood (NEG) Urine Nitrite (NEG) Ur Leukocyte Esterase (NEG) Urine Test (NEGATIVE) COVID-19 ([facility]) (Negative) COVID-19 Clin Com 10/25/20 10/25/20 Range/Units 19:01 19:01 WBC (4.8-10.8) X10*3/uL RBC (4.20-5.50) X10*6/uL Hgb (12.0-16.0) g/dl Hct (37-47) % MCV (80-98) fL MCH (27.0-33.0) pg MCHC (31.0-35.0) g/dl RDW (11.0-16.0) % Plt Count MPV Immature Gran % (Auto) (0.0-0.4) % Neut % (Auto) (45-73) % Lymph % (Auto) (20-40) % [place] % (Auto) (2-11) % Eos % (Auto) (0-4) % Baso % (Auto) (0-2) % Lymph # (Auto) (1.2-4.9) X10*3/uL [place] # (Auto) (0.1-1.2) X10*3/uL Eos # (Auto) (0.0-0.4) X10*3/uL Baso # (Auto) (0.0-0.2) X10*3/uL Abs Immat Gran (auto) (0.00-0.03) X10*3/uL Absolute Neuts (auto) (2.0-8.3) X10*3/uL Absolute Nucleated RBC (0.0-0.012) X10*3/uL Nucleated RBC % (auto) (0.0-0.2) /100WBC Smear Tech's Comments PT (10.8-13.0) SEC INR (0.9-1.1) APTT (24.1-38.0) SEC Sodium (135-145) mmol/L Potassium (3.3-5.1) mmol/L Chloride (96-108) mmol/L Carbon Dioxide (22-29) mmol/L Anion Gap (12-20) BUN (9-16) mg/dL Creatinine (0.5-1.4) mg/dL Estim Creat Clear Calc Estimated GFR Random Glucose (60-115) mg/dL Calcium (8.4-10.2) mg/dL Total Bilirubin (0.0-1.0) mg/dL AST (5-31) U/L ALT (0-31) U/L Alkaline Phosphatase (39-117) U/L Troponin I High Sens (<3.5-17.0) ng/L Total Protein (6.5-8.0) g/dL Albumin (3.5-5.0) g/dL Urine Color YELLOW Urine Appearance CLEAR Urine pH 5.5 (5.0-8.0) Ur Specific [place] >= 1.030 H (1.005-1.025) Urine Protein NEG (NEG-TRACE) MG/DL Urine Glucose (UA) NEG (NEG) MG/DL Urine Ketones NEG (NEG) MG/DL Urine Blood TRACE (NEG) Urine Nitrite NEG (NEG) Ur Leukocyte Esterase NEG (NEG) Urine Test NEGATIVE (NEGATIVE) COVID-19 ([facility]) (Negative) COVID-19 Clin Com Imaging Data Chest x-ray: Radiologist's impression: [address] [id number] ReportSigned Patient: Roxana Platt#: [id number]: 1975Acct:[id number]/Sex: 44 / FADM Date: 10/25/20Loc: EDAttending Dr: Ordering Physician: Amilcar Emery NP Date of Service: 10/25/20 Procedure(s): XR chest 2V Accession Number(s): [id number] cc: Amilcar Emery PRINTING SPECIALIST~ EXAMINATION: XR CHEST CLINICAL INFORMATION: SOB COMPARISON: Chest 10/05/2020 TECHNIQUE: 2 views of the chest were obtained. FINDINGS: The lungs are hyperinflated but clear of acute process. The heart size and pulmonary vascularity is normal. No gross bony abnormality. XR/XR chest 2V IMPRESSION: Hyperinflated lungs without acute process. Dictated By:SALENA DICKERSON MDSigned By:<Electronically signed by SALENA DICKERSON MD in OV>10/25/20 1309 DD/ 1232TD/TT: Supervisor Taping: [facility] [place] Discharge Plan Discharge Clinical Impression: COPD (chronic obstructive pulmonary disease) Patient Disposition: Home, Self-Care Instructions: Chronic Bronchitis (ED) Additional Instructions: Continue with supportive care discussed Continue taking your maintenance medication prescribed Follow-up with central processing technician Return if any concerns or worsening symptoms Thank you Initially prescription of azithromycin was called in by air this was canceled and she was given doxycycline 100 mg b.i.d. for 7 days. Prescriptions: New prednisone 20 mg tablet 40 mg PO DAILY 5 Days Qty: 10 RF: 0 doxycycline monohydrate 100 mg capsule 100 mg PO BID 7 Days Qty: 14 RF: 0 No Action albuterol sulfate 90 mcg/actuation HFA aerosol inhaler 2 puff inhalation Q4-6H PRN (Reason: shortness of breath or wheezing) Qty: 18 RF: 2 ipratropium-albuterol 0.5 mg-3 mg(2.5 mg base)/3 mL solution for nebulization 3 ml inhalation Q6H PRN (Reason: shortness of breath or wheezing) Qty: 180 RF: 2 prednisone 20 mg tablet 40 mg PO DAILY Qty: 10 RF: 0 cefpodoxime 200 mg tablet 200 mg PO BID Qty: 20 RF: 0 doxycycline hyclate 100 mg tablet 100 mg PO BID Qty: 14 RF: 0 benzonatate [Tessalon Perles] 100 mg capsule 100 mg PO Q6H PRN (Reason: cough) Qty: 20 RF: 0 buprenorphine-naloxone 8-2 mg film sublingual RF: 0 fluticasone propionate 50 mcg/actuation spray,suspension intranasal RF: 0 fluoxetine 20 mg capsule 20 mg PO DAILY RF: 0 omeprazole 40 mg capsule,delayed release(DR/EC) 40 mg PO DAILY RF: 0 sennosides 8.6 mg tablet 17.2 mg PO DAILY RF: 0 Xolair 150 mg/mL syringe subcut Q4W RF: 0 loratadine 10 mg tablet 10 mg PO BEDTIME RF: 0 montelukast 10 mg tablet 10 mg PO DAILY RF: 0 docusate sodium [Colace] 100 mg capsule 100 mg PO DAILY RF: 0 prednisone 5 mg tablet 5 mg PO BID 10 Days Qty: 21 RF: 0 doxycycline hyclate 100 mg tablet 100 mg PO BID 10 Days Qty: 20 RF: 0 Referrals: Shelley Zheng MD [Primary Care Provider] - 2 days
--- NOTE | 2020-10-25 12:32 | ECG_ITS ---
Test Reason : DYSPNEA Blood Pressure : / mmHG Vent. Rate : 086 BPM Atrial Rate : 086 BPM P-R Int : 134 ms QRS Dur : 078 ms QT Int : 370 ms P-R-T Axes : 079 072 065 degrees QTc Int : 442 ms Normal sinus rhythm with sinus arrhythmia Biatrial enlargement Abnormal ECG When compared with ECG of 17-JAN-2020 20:59, QT has lengthened Referred By: Amilcar Emery Electronically Signed By:NAVNEET KEBEDE
[2020-10-25 13:06] LABS: COVID-19 Test Negative (Negative)
[2020-10-25 13:09] LABS: INTERNATIONAL NORM RATIO 0.9 (0.9-1.1); Prothrombin Time 10.6 SEC (10.8-13.0)
[2020-10-25 13:16] LABS: Basophils Absolute Auto 0.1 X10*3/uL (0.0-0.2); Basophils Percent Auto 0.7 % (0-2); Eosinophils Absolute Auto 0.4 X10*3/uL (0.0-0.4); Eosinophils Percent Auto 4.3 % (0-4); Hematocrit 43.3 % (37-47); Hemoglobin 14.2 g/dl (12.0-16.0); Imm Gran Abs Auto 0.03 X10*3/uL (0.00-0.03); Imm Gran Pct Auto 0.3 % (0.0-0.4); Lymphocytes Absolute Auto 2.6 X10*3/uL (1.2-4.9); Lymphocytes Percent Auto 25.1 % (20-40); MANUAL DIFF FLAG SCAN; Mean Corpuscular HGB Conc 32.8 g/dl (31.0-35.0); Mean Corpuscular Hemoglobin 29.4 pg (27.0-33.0); Mean Corpuscular Volume 89.6 fL (80-98); Monocytes Absolute Auto 0.6 X10*3/uL (0.1-1.2); Monocytes Percent Auto 5.8 % (2-11); Neutrophils Absolute Auto 6.6 X10*3/uL (2.0-8.3); Neutrophils Percent Auto 63.8 % (45-73); PLT CLUMP 1; Red Blood Count 4.83 X10*6/uL (4.20-5.50); Red Cell Distribution Width 12.8 % (11.0-16.0); SCAN SMEAR FLAG 1
[2020-10-25 13:33] LABS: White Blood Count 10.3 X10*3/uL (4.8-10.8)
[2020-10-25 13:35] LABS: SLIDE REVIEW VERIFIED
[2020-10-25] MEDS: Albuterol Sulfate (0.083%) 2.5 MG/3 ML VIAL.NEB 10 MG INHALE (13:44)
[2020-10-25 13:51] VITALS: PULSE 91; O2SAT 99
[2020-10-25 14:15] LABS: Troponin-I High Sensitivity 7.5 ng/L (<3.5-17.0)
[2020-10-25] MEDS: Albuterol Sulfate (0.083%) 2.5 MG/3 ML VIAL.NEB 5 MG INHALE (15:56)
[2020-10-25 15:58] VITALS: PULSE 94; O2SAT 98
[2020-10-25 16:00] VITALS: BP 108/72; PULSE 101; RESP 18; TEMP 36.9; O2SAT 99
[2020-10-25] MEDS: predniSONE 20 MG TABLET 60 MG PO (16:15)
--- NOTE | 2020-10-25 16:46 | PC.NURSE ---
pt feeling better after 2nd treatment
[2020-10-25 18:00] VITALS: BP 102/57; PULSE 86; RESP 20; TEMP 36.8; O2SAT 95
[2020-10-25 18:31] LABS: Troponin-I High Sensitivity 5.1 ng/L (<3.5-17.0)
[2020-10-25 18:34] LABS: Alanine Aminotransferase 23 U/L (0-31); Alkaline Phosphatase 69 U/L (39-117); Anion Gap 11 (12-20); Aspartate Amino Transferase 24 U/L (5-31); Bilirubin Total 0.6 mg/dL (0.0-1.0); Blood Urea Nitrogen 6 mg/dL (9-16); Calcium 9.3 mg/dL (8.4-10.2); Carbon Dioxide 27 mmol/L (22-29); Chloride 102 mmol/L (96-108); Creatinine Clr Calc Pharmacy 75.4; Estimated Glomerular Filt Rate > 60; Glucose Random 102 mg/dL (60-115); Potassium 3.8 mmol/L (3.3-5.1); Sodium 136 mmol/L (135-145); Total Protein 8.1 g/dL (6.5-8.0)
[2020-10-25 19:13] LABS: Glucose Urine UA NEG (NEG); Leukocyte Esterase Urine NEG (NEG); Nitrite Urine NEG (NEG); PH 5.5 (5.0-8.0); Specific Gravity - Urine >= 1.030 (1.005-1.025); Urine Blood TRACE (NEG); Urine Ketones NEG (NEG); Urine Protein NEG (NEG-TRACE)
[2020-10-25 19:14] LABS: Appearance Urine CLEAR; Color Urine YELLOW
[2020-10-25 19:19] LABS: UPreg QC Valid YES; Urine Pregnancy NEGATIVE (NEGATIVE)
[2020-10-25 19:37] LABS: Bacteria Urine 1+ /LPF; Mucus Urine 2+ /LPF; RBC Urine 0-2 /HPF (0); Squamous Epithelial Cell Urine 1+ /LPF; WBC Urine 0 /HPF (0-4)
== END 2020-10-25 19:37 | disposition home or self-care (01) ==
PROVIDERS: Nurse Practitioner Primary Care; Emergency Provider Emergency Medicine; PCP Internal Medicine
DX: J44.9 Chronic obstructive pulmonary disease, unspecified (principal); Z20.822 Contact with and (suspected) exposure to COVID-19; F12.90 Cannabis use, unspecified, uncomplicated; Z87.891 Personal history of nicotine dependence
CPT/HCPCS: 36415; 71046; 80053; 81001; 81025; 84484; 85025; 85610; 85730; 87635; 93005; 94640; 94644; 94645; 99284

== ENCOUNTER → 2020-11-02 10:02 | Outpatient (BNVA) | payer OTHER, SELFPAY | PROVIDERS: PCP Internal Medicine; Visit Provider Internal Medicine | DX: J45.41 Moderate persistent asthma with (acute) exacerbation (principal); J44.9 Chronic obstructive pulmonary disease, unspecified; J30.9 Allergic rhinitis, unspecified | CPT/HCPCS: 99212 ==

== ENCOUNTER 2020-11-08 11:09 | Outpatient (REF) | payer OTHER, SELFPAY | END 2020-11-08 11:10 | disposition home or self-care (01) | LOC: HO.MDS 11:09 | PROVIDERS: PCP Internal Medicine; Visit Provider Internal Medicine | DX: J45.50 Severe persistent asthma, uncomplicated (principal) | CPT/HCPCS: 96372; J2357 ==

== ENCOUNTER → 2020-11-21 10:56 | Outpatient (BNVA) | payer OTHER, SELFPAY | PROVIDERS: PCP Internal Medicine; Visit Provider Internal Medicine | DX: J45.909 Unspecified asthma, uncomplicated (principal); J44.9 Chronic obstructive pulmonary disease, unspecified; J30.9 Allergic rhinitis, unspecified | CPT/HCPCS: 99212 ==

== ENCOUNTER 2020-12-14 14:09 | Outpatient (REF) | payer OTHER, SELFPAY | END 2020-12-14 14:10 | disposition home or self-care (01) | LOC: HO.MDS 14:09 | PROVIDERS: PCP Internal Medicine; Visit Provider Internal Medicine | DX: J45.901 Unspecified asthma with (acute) exacerbation (principal) | CPT/HCPCS: 96372; J2357 ==